=== PATIENT | male | born 1960 | race Caucasian/White ===

== ENCOUNTER → 2016-07-08 | Outpatient (CLI) | payer OTHER ==
[~2016-07-08] MED LIST: ALEVE220 M1 PO; ALEVE220 MG PO; AMBIEN5 MG PO; ASPIRIN LO-DOSE81 MG PO; BYSTOLIC5 MG PO; COLACE100 MG PO; DULCOLAX10 MG R; ECOTRIN325 MG PO; FLOMAX0.4 MG PO; GABAPENTIN100 MG PO; MILK OF MA400 MG/5 M PO; MIRALAX17 GM PO; MORPHINE 15MG I15 MG PO; MORPHINE SULFAT15 M1 PO; MS CONTIN15 MG PO; STOOL SOFTENER250 MG PO; TESTOSTERO200 MG/1 M IM; TORADOL10 MG PO; TYLENOL EXTRA500 MG PO; VALIUM2 MG PO; XARELTO10 MG PO
[2016-07-08 17:27] LABS: PROTIME 10.4 SECONDS (9.6-11.1)
== END | disposition disaster alternative care site (69) ==
LOC: LGSMG 16:37
PROVIDERS: Internal Medicine
DX: Z01.818 Encounter for other preprocedural examination (principal)

== ENCOUNTER → 2016-07-12 | Outpatient (CLI) | payer OTHER | END | disposition disaster alternative care site (69) | LOC: GRAD 08:08 | DX: R10.30 Lower abdominal pain, unspecified (principal); N28.9 Disorder of kidney and ureter, unspecified; Z98.890 Other specified postprocedural states ==

== ENCOUNTER → 2016-12-06 | Outpatient (CLI) | payer OTHER ==
--- NOTE | ~2016-12-06 | NDGEN ---
PATIENT'S NAME: SUZI ESCOBAR [facility] AGE: 55 Y [address] ROOM: [place] [address] LOCATION: [facility] ADMIT DATE: 12/06/2016 Neurodiagnostics DISCHARGE DATE: FAMILY PHYSICIAN: Haley Edward MD ATTENDING PHYSICIAN: SCOTT BRIONES DATE OF PROCEDURE: 12/06/2016 PROCEDURE: EMG/nerve conduction study of the bilateral lower extremities. The patient had this study done on 12/06/2016. INDICATION: This is a 55-year-old male patient who had recent orthopedic surgery for right knee replacement. He apparently developed symptoms of some pain and weakness into his right lower extremity and subsequently it appears as he had right peroneal nerve displacement surgery as well. He currently has full dorsiflexion, plantar flexion, and eversion of the right foot. However, he has weakness into his great toe on the right. He does have good extension of the other toes in the right foot. Sensory alex, he has poor proprioception at the great toe and position sense is also poor bilaterally. He has high arched feet bilaterally with atrophy of the plantar muscles of the feet. He also has hammering of his toes bilaterally. He has decreased general sensation in the bilateral lower legs particularly into the peroneal compartment. 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 Nerve conduction studies were performed in the bilateral motor, peroneal, and tibial nerves as well as the sensory nerve conduction studies in the bilateral sural nerves. The bilateral sural nerves showed delay into the peak onset latencies as well as low amplitudes and some mild slowing of the sensory nerve conduction velocities, however, the peroneal nerves bilaterally as well as the tibial nerves were also showing great delay in the motor onset latencies up to 10 to 11 milliseconds. 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 There were small amplitudes seen as well, likely small due to secondary slowing. Needle EMG was performed into the bilateral lower extremities. There was no evidence of any abnormal spontaneous electrical activity such as positive sharp waves or fibrillation potentials. The muscles were next recruited in the tibialis anterior muscles bilaterally as well as the gastrocnemius muscles bilaterally. There was complete recruitment of motor PATIENT'S NAME: SUZI ESCOBAR [facility] AGE: 55 Y [address] ROOM: [place], [place] [id number] LOCATION: [facility] ADMIT DATE: 12/06/2016 Neurodiagnostics DISCHARGE DATE: FAMILY PHYSICIAN: Haley Edward MD ATTENDING PHYSICIAN: SCOTT BRIONES unit action potentials seen furthermore in the right peroneal muscles. The foot was everted and there was full motor unit action potentials seen with normal recruitment pattern. IMPRESSION: There is a normal recruitment pattern of all the muscles seen in the bilateral lower extremities. 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 The severe slowing of the bilateral peroneal and tibial motor nerves secondary to low to absent amplitudes that are all consistent with a preexisting hereditary neuropathy. Furthermore, the patient may have a preexisting hereditary propensity for pressure palsy also seen in persons with defective myelination of the peripheral nerves. The patient may possibly regain improvement in the extension of the right toe, but it may not improve over time as well. MD SEBASTIAN AQUINO/shalonda /[id number] dtt: 01/11/17 1515 , SCOTT BRIONES. dtd: 12/06/16 1831
== END | disposition disaster alternative care site (69) ==
LOC: GNEU 10-26 15:00
DX: M79.671 Pain in right foot (principal); R93.8 Abnormal findings on diagnostic imaging of other specified body structures